=== PATIENT | female | born 1960 ===

== ENCOUNTER 2020-08-22 | Outpatient (CLI) | payer OTHER | END 2020-08-22 10:07 | disposition home or self-care (01) | LOC: EDBD → PPH VACUNA | DX: Z23 Encounter for immunization (principal) ==

== ENCOUNTER → 2020-09-12 08:00 | Outpatient (CLI) | payer OTHER | END | disposition home or self-care (01) | LOC: PPH VACUNA 08:00 | DX: Z23 Encounter for immunization (principal) ==